=== PATIENT | male | born 1990 | race Two or more races ===

== ENCOUNTER 2018-01-24 15:25 | Emergency (ER) | payer SELFPAY ==
[2018-01-24 15:36] VITALS: BP 112/72
--- NOTE | 2018-01-24 15:55 | UC ---
Throat Pain/Nasal Jose E HPI - HPI Summary HPI Summary: The pt is a 27 y/o male presenting to c/o throat pain for 3-4 weeks worse today.Initially the pain felt like it was "chocking" him then it subsided. He also notes pain swallowing but denies post nasal drip,productive cough, ear pain , and fever. The pain is relieved by tea and Motrin. This is scribe Wendy Mullins documenting for attending Dr. Donna Helms, Dr. Chalino Thompson , personally performed the services described in this documentation as scribed in my presence and it is both accurate and complete. - History of Current Complaint Chief Complaint: UCGeneralIllness Stated Complaint: SORE THROAT Time Seen by Provider: 01/24/18 15:50 Hx Obtained From: Patient Onset/Duration: Lasting Weeks - 3-4 weeks, Worse Since - Today Severity: Mild Pain Intensity: 3 Pain Scale Used: 0-10 Numeric Cough: Other: - Negative: non-productive cough Associated Signs & Symptoms: Positive: Negative - post nasal drip, ear pain. Negative: Fever - Allergies/Home Medications Allergies/Adverse Reactions: Allergies Allergy/AdvReac Type Severity Reaction Status Date / Time No Known Allergies Allergy Verified 01/24/18 15:37 PMH/Surg Hx/FS Hx/Imm Hx Previously Healthy: Yes - No known hx of HTN, HLD, DM - Surgical History Surgical History: Yes Surgery Procedure, Year, and Place: testicle surgery at age [age] - Family History Known Family History: Positive: Other - no known cardiac disease, htn, or diabetes. - Social History Occupation: Unemployed Lives: Dormitory/Roommates - With friend Alcohol Use: Weekly Alcohol Amount: 3x/week Substance Use Type: None Smoking Status (MU): Former Smoker Review of Systems Constitutional: Negative - Fever ENT: Negative - nasal dri, ear pain, Sore Throat, Other - Positive: pain swallowing All Other Systems Reviewed And Are Negative: Yes Physical Exam - Summary Physical Exam Summary: General: well-appearing, no pain distress Skin: warm, color reflects adequate perfusion, dry Head: normal Eyes: EOMI, ROCHELLE ENT: positive rhinorrhea, mild erythema at the back of the throat Neck: supple, nontender Respiratory: CTA, breath sounds present Cardiovascular: RRR Abdomen: soft, nontender Bowel: present Musculoskeletal: normal, strength/ROM intact Neurological: sensory/motor intact, A&O x3 Psychological: affect/mood appropriate Triage Information Reviewed: Yes Vital Signs: Initial Vital Signs Temp 98.1 F 01/24/18 15:30 Pulse 62 01/24/18 15:30 Resp 16 01/24/18 15:30 BP 112/72 01/24/18 15:30 Pulse Ox 100 01/24/18 15:30 Vital Signs Reviewed: Yes Throat Pain/Nasal Course/Dx - Course Course Of Treatment: PROBABLE CAUSE OF THE SORE THROAT IS POST NASAL DRIP FROM EITHER A SINUS INFECTION OR ALLERGIC RHINITIS. TREAT WITH BOTH ANTIHISTAMINE AND ABX. SX > 10 HARTMANN. F/U PMD; RECHECK SOONER IF WORSE. - Differential Dx/Diagnosis Provider Diagnoses: PHARYNGITIS Discharge - Sign-Out/Discharge Documenting (check all that apply): Patient Departure - Discharge Plan Condition: Stable Disposition: HOME Prescriptions: Amoxicillin/Clavulanate TAB* [Augmentin TAB 875*] 875 mg PO BID #20 tab Fluticasone NASAL SPRAY 50MCG* [Flonase NASAL SPRAY 50MCG*] 2 spray BOTH NARES DAILY #1 btl Patient Education Materials: Pharyngitis (ED) Referrals: Maico Okeefe MD [Primary Care Provider] - Additional Instructions: FOLLOW UP WITH YOUR PRIMARY CARE DOCTOR IF NOT COMPLETELY IMPROVED. GET RECHECKED FOR ANY WORSENING OF YOUR CONDITION OR QUESTIONS OR CONCERNS. - Billing Disposition and Condition Condition: STABLE Disposition: Home
== END 2018-01-24 16:08 | disposition home or self-care (01) ==
LOC: UCEAST 15:25
DX: J02.9 Acute pharyngitis, unspecified (principal); Z87.891 Personal history of nicotine dependence
CPT/HCPCS: 99212; G0463